=== PATIENT | female | born 1975 | race Caucasian/White ===

== ENCOUNTER → 2017-01-19 | Outpatient (CLI) | payer BC ==
[2013-02-10 10:35] VITALS: BP 130/76
--- NOTE | 2017-01-21 12:08 | MG ---
HISTORY: SCREENING Comparison: None FINDINGS: Bilateral CC and MLO projections of the right and left breast were obtained. Scattered fibroglandul ar tissue is seen to be present. No dominant suspicious architectural distortion, mass or clustered microcalcifications can be observed to suggest malignancy. However , there is focal asymmetry betw een 5-7 o'clock in the central posterior left breast most likely reflecting benign asymmetrical fibr oglandular parenchyma but for which further imaging evaluation is recommended given the lack of prev ious exams to document stability . Additionally , there are tiny partially obscured and partially ci rcumscribed isodense nodules at 3-4 o'clock at mid depth on the left as well as in the lower medial subareolar left breast for which further imaging evaluation is also recommended. Findings most likel y reflect tiny parenchymal cysts, intramammary lymph nodes, or fibroadenomas. No skin thickening or nipple retraction is appreciated. No pathological lymphadenopathy can be identified. IMPRESSION: Left breast focal asymmetry and tiny nodules for which follow up spot magnification and ML views are recommended. Ultrasound may be warranted as well pending mammographic findings. ACR CATEGORY 0 - assessment incomplete; additional imaging recommended. Diagnostic CAD was utilized and reviewed. * 0 (ZERO) - ASSESSMENT INCOMPLETE; ADDITIONAL IMAGING IS NEEDED. * 1/1 (ONE) - NEGATIVE. * 2/II (TWO) - BENIGN FINDINGS. * 3/III (THREE) - PROBABLY BENIGN FINDING; SHORT INTERVAL FOLLOW-UP SUGGESTED. * 4/IV (FOUR) - SUSPICIOUS ABNORMALITY; BIOPSY SHOULD BE CONSIDERED. * 5/V (FIVE) - HIGHLY SUSPICIOUS OF MALIGNANCY; BIOPSY SHOULD BE PERFORMED. A NEGATIVE X-RAY REPORT SHOULD NOT DELAY BIOPSY IF A DOMINANT OR CLINICALLY SUSPICIOUS MASS IS PRESENT; 4 TO 8 PERCENT OF CANCERS ARE NOT IDENTIFIED BY X-RAY. A NEG ATIVE REPORT MAY REINFORCE THE CLINICAL IMPRESSION. ADENOSIS AND DENSE BREASTS MAY OBSCURE AN UNDER LYING NEOPLASM. Reported By:
== END ==
LOC: RAD 09:45
PROVIDERS: ATTEND Obstetrics & Gynecology
DX: Z12.31 Encounter for screening mammogram for malignant neoplasm of breast (principal)
CPT/HCPCS: 77067

== ENCOUNTER → 2017-02-08 | Outpatient (CLI) | payer BC ==
[2013-02-10 10:35] VITALS: BP 130/76
--- NOTE | 2017-02-08 14:40 | MG ---
Examination: Unilateral left diagnostic mammogram and left breast ultrasound. Clinical history: Abnormal screening mammogram. Technique: Additional digital images of the left breast were obtained. Targeted left breast ultrasoun d was also obtained evaluating the 3 o'clock position in the left breast. Comparison: Screening mammogram dated 01/19/2017. No older mammograms are available for comparison. Findings: The left breast is composed of scattered fibroglandular densities. Three small focal asymmetries seen in the left breast on the recent screening mammogram, are not pers istent on additional views and were likely due to summation artifact. There is a persistent small 4-5 mm oval mass present at approximately the 3 o'clock position in the l eft breast in the posterior depth, which is partially obscured by surrounding fibroglandular tissue. Targeted left breast ultrasound evaluating the 3 o'clock position in the left breast reveals a 5 mm o blu mass with an associated echogenic hilum seen at the 3 o'clock position approximately 8-9 cm from the nipple, correlating with findings on the mammogram, consistent with a small intramammary lymph no de. No suspicious cystic or solid mass is noted. Impression: 1. Benign findings, as described above. No mammographic or sonographic evidence of malignancy. BI-RADS category 2-benign findings. Recommend routine annual screening mammogram. Diagnostic CAD was utilized and reviewed. * 0 (ZERO) - ASSESSMENT INCOMPLETE; ADDITIONAL IMAGING IS NEEDED. * 0C - ASSESSMENT INCOMPLETE, NEEDS ADDITIONAL IMAGING EVALUATION AND/OR PRIOR MAMMOGRAMS FOR COMPARI SON. * 1/1 (ONE) - NEGATIVE. * 2/II (TWO) - BENIGN FINDINGS. * 3/III (THREE) - PROBABLY BENIGN FINDING; SHORT INTERVAL FOLLOW-UP SUGGESTED. * 4/IV (FOUR) - SUSPICIOUS ABNORMALITY; BIOPSY SHOULD BE CONSIDERED. * 5/V - HIGHLY SUSPICIOUS OF MALIGNANCY; BIOPSY SHOULD BE PERFORMED. * 6/ - KNOWN BIOPSY PROVEN MALIGNANCY-APPROPRIATE ACTION SHOULD BE TAKEN. A NEGATIVE X-RAY REPORT SHOULD NOT DELAY BIOPSY IF A DOMINANT OR CLINICALLY SUSPICIOUS MASS IS PRESENT; 4 TO 8 PERCENT OF CANCERS ARE NOT IDENTIFIED BY X-RAY. A NEGATIVE REPORT MAY REINFORCE THE CLINICAL IMPRESSION. ADENOSIS AND DENSE BREASTS MAY OBSCURE AN UNDERLYING NEOPLASM. Reported By:
== END ==
LOC: RAD 12:53
PROVIDERS: ATTEND Obstetrics & Gynecology
DX: R92.8 Other abnormal and inconclusive findings on diagnostic imaging of breast (principal)
CPT/HCPCS: 76642; 77065